=== PATIENT | female | born 1995 | race Caucasian/White ===

== ENCOUNTER 2018-08-17 09:13 | Emergency (ER) | payer OTHER ==
[~2018-08-17] VITALS: Ht 172.7 cm; Wt 90.3 kg
[2018-08-17 09:19] VITALS: BP 109/66
--- NOTE | 2018-08-17 09:24 | NUR ---
pt vss; provided urine sample; triaged to lobby, not in distress.
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
[2018-08-17] MEDS ORDERED: MECLIZINE 25 MG TAB PO ONE (11:05)
[2018-08-17] MEDS ORDERED: FAMOTIDINE 20 MG TAB PO ONE (11:05)
[2018-08-17] MEDS ORDERED: PROMETHAZINE 25 MG/ML VIAL IM ONE (11:05)
[2018-08-17] MEDS ORDERED: ONDANSETRON 4 MG ODT PO ONE (11:05)
[2018-08-17 12:39] VITALS: BP 114/62
--- NOTE | 2018-08-17 12:39 | NUR ---
Patient discharged with v/s stable. Written and verbal after care instructions given and explained. Patient alert, oriented and verbalized understanding of instructions. Ambulatory with steady gait. All questions addressed prior to discharge. ID band removed. Patient advised to follow up with PMD. Rx of MECLIZINE, PHENERGAN given. Patient educated on indication of medication including possible reaction and side effects. Opportunity to ask questions provided and answered.
== END 2018-08-17 12:09 | disposition home or self-care (01) ==
LOC: MED 09:13
DX: T75.3XXA Motion sickness, initial encounter (principal); R42 Dizziness and giddiness; R11.2 Nausea with vomiting, unspecified; Y93.89 Activity, other specified; Y99.8 Other external cause status
CPT/HCPCS: 81002; 81025; 96372; 99284; J2550; J8597; Q0162